=== PATIENT | female | born 1950 | race Caucasian/White ===

== ENCOUNTER 2017-11-27 10:50 | Outpatient (CLI) | payer MEDICARE, OTHER, SELFPAY ==
[2017-11-27 10:52] VITALS: BMI 23.3
[2017-11-27 11:16] LABS: Albumin Level 3.7 gm/dL (3.4-5.0); Calcium 9.4 mg/dL (8.5-10.1); Creatinine Clearance Estimated 51 mL/min (0-300); Creatinine,Serum 1.08 mg/dL (0.55-1.02); Estimated Glomerular Filt Rate 51 ml/min (>60); GFR (African American) 61 ML/MIN (>60)
[2017-11-27 12:06] VITALS: BP 96/59; PULSE 68; RESP 20; TEMP 36.8; O2SAT 96
[2017-11-27 12:30] VITALS: BP 122/70; PULSE 68; RESP 20; TEMP 36.9; O2SAT 95
== END 2017-11-27 12:30 | disposition home or self-care (01) ==
LOC: INF 10:58
PROVIDERS: Family Provider Internal Medicine Adolescent Medicine; Visit Provider Nurse Practitioner Family
DX: M85.80 Other specified disorders of bone density and structure, unspecified site (principal)
CPT/HCPCS: 82040; 82310; 82565; 96365; J3489

== ENCOUNTER → 2018-03-04 13:57 | Outpatient (POV) | payer MEDICARE, OTHER, SELFPAY ==
[2018-03-04 16:30] LABS: Basophils # 0.1 K/mm3 (0-0.2); Basophils % 1.3 % (0.1-2.0); Eosinophils # 0.1 K/mm3 (0.0-0.4); Eosinophils % 0.7 % (0.1-12.0); Hematocrit 47.5 % (37.0-47.0); Hemoglobin 15.4 g/dL (12.2-16.2); Lymphocytes # 1.3 K/mm3 (0.7-4.5); Mean Corpuscular HGB Conc 32.4 g/dL (31.8-35.4); Mean Corpuscular Hemoglobin 31.4 pg (27.0-31.2); Mean Corpuscular Volume 96.8 fl (81-99); Mean Platelet Volume 6.8 fl (7.4-10.4); Monocytes # 0.4 K/mm3 (0.1-1.0); Platelet Count 350 K/mm3 (142-424); Red Cell Distribution Width 12.6 % (11.5-17.5); White Blood Count 6.8 K/mm3 (4.8-10.8)
[2018-03-04 17:26] LABS: Alanine Aminotransferase 38 U/L (12-78); Albumin Level 4.5 gm/dL (3.4-5.0); Albumin/Globulin Ratio 1.1 (1.1-1.8); Alkaline Phosphatase 95 U/L (46-116); Amylase 52 U/L (25-125); Anion Gap 13.2 mEq/L (5-15); Aspartate Amino Transferase 24 U/L (15-37); Bilirubin,Total 0.6 mg/dL (0.2-1.0); Blood Urea Nitrogen 9 mg/dL (7-18); Calcium 9.4 mg/dL (8.5-10.1); Carbon Dioxide 32 mmol/L (21.0-32.0); Chloride 100 mmol/L (98-107); Creatinine,Serum 1.03 mg/dL (0.55-1.02); Estimated Glomerular Filt Rate 54 ml/min (>60); Free Thyroxine Index 3.2 ug/dL (5.93-13.13); GFR (African American) 65 ML/MIN (>60); Glucose 94 mg/dL (74-106); Lipase 185 u/L (73-393); Magnesium 2.6 mg/dL (1.4-2.2); Potassium 4.2 mmoL/L (3.5-5.1); Sodium 141 mmol/L (136-145); T4 (Thyroxine) 10.5 ug/dl (4.7-13.3); Thyroid Stimulating Hormone 5.27 uIU/ml (0.358-3.740); Total Protein,Serum 8.5 gm/dL (6.4-8.2); Triiodothryronine (T3) Uptake 30 % (31-39)
[2018-03-06 07:04] LABS: Vitamin B12 675 pg/mL (232-1245)
== END ==
PROVIDERS: Family Provider Internal Medicine Adolescent Medicine; Visit Provider Nurse Practitioner Acute Care
DX: R53.83 Other fatigue (principal); R10.13 Epigastric pain; R10.11 Right upper quadrant pain
CPT/HCPCS: 36415; 80053; 82150; 82607; 83690; 83735; 84436; 84443; 84479; 85025

== ENCOUNTER → 2018-03-05 10:16 | Outpatient (CLI) | payer MEDICARE, OTHER, SELFPAY ==
--- NOTE | 2018-03-05 10:26 | CT_ITS ---
CT abdomen pelvis wo/w con CLINICAL INDICATION: Right-sided abdominal pain ITS.REASON: ABD PAIN ORDERING PHYSICIAN: Yves Castillo MD PATIENT AGE: 67 years COMPARISON: None TECHNIQUE: Axial images obtained with sagittal and coronal reformats. All CT scans at the facility use one or more dose reduction, viz: automated exposure control, ma/kV adjustment per patient size (including targeted exams where dose is matched to indication, i.e. head), or iterative reconstruction technique. PROCEDURE: Oral Contrast: None IV Contrast: 75 mL's of Isovue-370 . FINDINGS: No acute finding in the lung bases. Prior cholecystectomy. Minimal biliary ductal dilatation noted. No focal liver lesion. The spleen, adrenal glands, pancreas and kidneys have an unremarkable appearance. No renal or ureteral calculi or hydronephrosis. No intestinal obstruction or free air. Bowel gas pattern is nonspecific and nonobstructive. There are few small lymph nodes in the mesentery's and right lower quadrant. No evidence of appendicitis or diverticulitis. No acute bony anomalies. No pelvic mass or abnormal fluid collection or focal inflammatory change evident within the pelvis IMPRESSION: 1. No acute abdominal or pelvic findings. 2. No evidence of appendicitis or ureteral calculus.
== END ==
PROVIDERS: Family Provider Internal Medicine Adolescent Medicine; PCP Internal Medicine Adolescent Medicine; Visit Provider Internal Medicine Adolescent Medicine
DX: R10.13 Epigastric pain (principal); R10.11 Right upper quadrant pain
CPT/HCPCS: 74170; 74178; Q9967

== ENCOUNTER → 2019-09-04 16:35 | Outpatient (CLI) | payer MEDICARE, OTHER, SELFPAY ==
--- NOTE | 2019-09-04 | CA_ITS ---
APPROVED REPORT Left Lower Extremity Venous Study for DVT. Publicist: TAURUS Indications Lower Extremity Pain: Varicose Veins Patient states she had a bakers cyst behind left knee that ruptured over a week ago. She states this morning she woke up with pain and red streaking just proximal to the left knee. Risk Factors Prior Phlebitis/DVT Patient had SVT in GSV in 2011. Vein Imaging CFV (L): compressive, spontaneous, phasic, augmentation FEM (L): compressive, spontaneous, phasic, augmentation POP (L): compressive, spontaneous, phasic, augmentation PTV (L): Compressible GSV (L): Non-Compressible, Thrombus Peroneals (L):Compressible GAS (L): Non-Compressible, Thrombus Findings SVT is seen in the proximal GSV of the LLE. DVT is seen in the gastrocnemius and soleal veins of the LLE. Conclusion SVT is seen in the proximal GSV of the LLE. DVT is seen in the gastrocnemius and soleal veins of the LLE. Critical Notification Critical Value: Yes Physician Notified Date: 09/04/19 Time: 17:10 Physician Name: [place] Electronically signed by : Fei Marshall MD 09/04/2019 19:43:47
== END ==
PROVIDERS: PCP Nurse Practitioner Family; Visit Provider Nurse Practitioner Family
DX: M79.605 Pain in left leg (principal); I83.813 Varicose veins of bilateral lower extremities with pain; I87.2 Venous insufficiency (chronic) (peripheral)
CPT/HCPCS: 93971

== ENCOUNTER → 2020-08-24 09:56 | Outpatient (CLI) | payer MEDICARE, OTHER, SELFPAY ==
--- NOTE | 2020-08-24 10:00 | XR_ITS ---
PROCEDURE: XR DEXA AXIAL SKELETON CLINICAL HISTORY: POST MENOPAUSAL COMPARISON: CR BONE3 BONE DENSITOMETRY(HIP:LT SPINE from 02/05/2017 FINDINGS: The right hip BMD is 0.596 with a T-score of -2.3. The left hip BMD is 0.732 with a T-score of -1.7. The lumbar spine BMD is 0.873 with a T-score of -1.6. Previously the lowest density was in the right femoral neck with T-score of -2.3. IMPRESSION: This patient is considered osteopenic according to the World Health Organization criteria. Bone density is between 10 and 25 percent below young normal. Fracture risk is moderate. Treatment is advised. Based on these results a follow-up exam is recommended in 2 year. Dictated by: Fei Marshall MD 08/25/2020 09:19 Fei Marshall MD in [place] 08/25/2020 09:19
== END ==
PROVIDERS: PCP Nurse Practitioner Family; Visit Provider Nurse Practitioner Family
DX: Z13.820 Encounter for screening for osteoporosis (principal); Z78.0 Asymptomatic menopausal state
CPT/HCPCS: 77080

== ENCOUNTER → 2020-10-14 07:29 | Outpatient (CLI) | payer MEDICARE, OTHER, SELFPAY ==
--- NOTE | 2020-10-14 07:35 | CA_ITS ---
APPROVED REPORT EXAM: Comprehensive 2D, Doppler, and color-flow Echocardiogram Bandsaw Operator: JABIER Valderrama, RVS Ht: 5 ft 4 in Wt: 154lbs BSA: 1.75 HR: 72 bpm BP: 116/72 mmHg Rhythm: irregular Indications: SOA 2D Dimensions Aortic Root 2.82 cm LA Volume 31.70 mL Left Atrium 3.44 cm LA Volume Index 18.10 mL/m2 (M/F) 16-34 LVOT 1.98 cm (M/F) 1.5-2.5 M-Mode Dimensions RVDd 2.51 cm (0.9-2.6) LA Diam 3.50 cm (1.9-4.0) LVDd 4.56 cm (3.5-5.7) Ao Diam 2.96 cm (2.0-3.7) LVDs 3.01 cm (3.5-5.7) IVSd 0.94 cm (0.6-1.1) PWd 0.67 cm (0.6-1.1) EF (Teich) 59.30% EPSs 0.27 cm FS 31.30% EDV (Teich) 86.80 mL ESV (Teich) 35.30 mL LV Diastology E Decel Time 257.00 (160-240 msec) E/A Ratio 0.84 MED E' 6.90 (< 7 cm/sec) MED A' 7.60 cm/s E'/MED E' Ratio 8.83 (>14) LAT E' 6.20 (<10 cm/sec) LAT A' 8.40 cm/s E/LAT E' Ratio 9.82 (>14) Aortic Valve LVOT Max 83.00 (70-110 cm/s) LVOT VTI 18.03 cm AoV Peak Evan. 128.00 (50-130 cm/s) AO Peak GR. 6.50 mmHg AO Mean GR. 2.90 (<5 mmHg) AO VTI 26.17 (18-25 cm) ADIS (VTI) 2.12 (2.5-4.5 cm2) Mitral Valve MV A Velocity 73.00 (40-130 cm/s) E/A Ratio 0.84 MV Decel. Time 257.00 (160-240 ms) Pulmonary Valve PV Peak Velocity 70.00 (50-150 cm/s) ME End VMAX 179.00 cm/s Tricuspid Valve TR P. Velocity 253.00 cm/s RAP Estimate 10.00 mmHg RVSP 35.60 mmHg Left Ventricle Left atrium is mildly enlarged, left ventricle is normal size, left ventricle wall thickness is upper limit of the normal, visually estimated ejection fraction 55% with no regional wall motion abnormality, grade 1 diastolic dysfunction seen without tissue Doppler evidence of raise left atrial pressure. Right Ventricle Right atrium and right ventricle are normal size and contractility. Aortic Valve Aortic valve is minimally thickened and fibrosed, there is no aortic stenosis or aortic insufficiency. Mitral Valve Mitral valve is grossly normal, there is trace mitral regurgitation. Tricuspid Valve Tricuspid valve grossly normal, there is trace tricuspid regurgitation, calculated right ventricular systolic pressure is 35 mmHg. Pulmonic Valve Pulmonic valve is poorly visualized. Great Vessels Aortic root is normal size. Pericardium No significant pericardial effusion noted. Conclusion 1. Normal left ventricular size, visually estimated ejection fraction 55% with no regional wall motion abnormality, grade 1 diastolic dysfunction seen without tissue Doppler evidence of raise left atrial pressure. 2. Trace mitral and tricuspid regurgitation, calculated right ventricular systolic pressure is 35 mmHg. 3. No significant pericardial effusion noted. Electronically signed by : Dipak De La Cruz, 10/14/2020 17:10:10
== END ==
PROVIDERS: PCP Nurse Practitioner Family; Visit Provider Nurse Practitioner Family
DX: R06.02 Shortness of breath (principal)
CPT/HCPCS: 93306

== ENCOUNTER → 2020-10-29 09:38 | Outpatient (CLI) | payer MEDICARE, OTHER, SELFPAY ==
[2020-10-29 11:27] LABS: Coronavirus 19 IgG Antibody Positive (Negative); Coronavirus 19 IgM Antibody Negative (Negative)
== END ==
PROVIDERS: Visit Provider Internal Medicine Gastroenterology
DX: Z01.818 Encounter for other preprocedural examination (principal); Z20.822 Contact with and (suspected) exposure to COVID-19; Z13.810 Encounter for screening for upper gastrointestinal disorder; Z12.11 Encounter for screening for malignant neoplasm of colon
CPT/HCPCS: 36415; 86328

== ENCOUNTER 2020-11-01 07:13 | Day surgery (SDC) | payer MEDICARE, OTHER, SELFPAY ==
[2020-10-27 10:38] VITALS: BMI 25.7
[2020-11-01] VITALS (7 sets, daily range): BP systolic 96–129; BP diastolic 63–85; PULSE 89–108; RESP 12–20; TEMP 36.3–36.4; O2SAT 96–99
--- NOTE | 2020-11-01 07:43 | P.PN_ITS ---
[facility] Anesthesia Checklist - Patient Identification Patient Identification: Arm Band - Structural Data Admitted From: Home Planned Operative Procedure/s: egd/colonoscopy Consent for Planned Operative Procedure(s) Verified: Yes Verified Documents: Surgical Consent, History and Physical - NPO Status Verified Time NPO: 00:00 - Additional verifications Anesthesia Reactions: No - Airway Assessment C-Spine Mobility Assessed: Yes (mp2) TMJ Mobility Assessed: Yes Dentition: Good Dentition - Neurological Assessment Level of Consciousness: Awake, Alert - Anesthesia Plan Anesthesia Risk discussed: Yes Anesthesia Plan: Verified ASA Class: III Anesthesia Type: MAC [facility] History I have reviewed the patient's past medical history: Yes Medical History: Reports:: Anxiety, Chronic Obstructive Pulmonary Disease (COPD), Deep Vein Thrombosis, Depression, Gastroesophageal Reflux Disease(GERD), Peripheral Artery Disease Denies:: Cancer, Diabetes Mellitus Type 1, Diabetes Mellitus Type 2, Internal Pacemaker, Lung Disease, MRSA, Seizures *Have you ever received a pneumonia vaccine?: Yes *Have you received a flu vaccine this season?: No Other Medical History: Reports: Hypothyroidism Anesthesia experience/problems:: nac Laterality Cases: Bilateral: Tonsillectomy Other Surgeries: Yes: Cholecystectomy, Tubal Ligation, Other. No: Pacemaker Amputation: No Fractures: No - *Social History Last grade of school completed: GED Smoking Status: Never smoker Alcohol Intake: never Substance Use Type: denies use *Occupational Status:: retired Housing: house Household Members: spouse *Travel in the last 8 weeks: None - Psychiatric History Pschychiatric History:: Reports:: Anxiety, Depression Family Hx:: Cancer
--- NOTE | 2020-11-01 08:43 | P.PCN_ITS ---
[facility] Procedure Note Procedure Note:: Upper Endoscopy Procedure Report: Esophagogastroduodenoscopy with cold biopsies and TTS balloon dilation Endoscopost: Flaco Torres II, MD Referring Physician: DAYANNA Jha Date of Procedure: November 01, 2020 Equipment: Olympus GIF 190 standard upper endoscope Sedation: MAC sedation Indications: Mrs. Kaur is a 70-year-old female who is here for diagnostic evaluation of her dyspepsia, reflux and globus sensation. She has had longstanding intermittent dyspepsia with epigastric abdominal discomfort. She reports bloating and moderate belching. She has had early satiety but infrequent nausea. She has occasional regurgitation. She reports fullness in her throat but no dysphagia. She does state that her bowel function is mostly regulated because she does take the fiber bowel regimen (MiraLAX plus Konsyl) routinely. She reports no melena or hematochezia. She reports no weight loss. She does get discomfort in the left and right upper quadrant. Procedure: Prior to the procedure, a history and physical exam was performed, and patient's medications and allergies were reviewed. The risks, benefits and alternatives of the sedation and procedure were discussed with the patient. All questions were answered and informed consent was obtained. The patient was brought to the procedure room. Patient identification and proposed procedure were verified by the physician and the nurse. The patient was placed in a left lateral decubitus position and the scope was passed under direct vision. Throughout the procedure, the patient's blood pressure, pulse, and oxygen saturations were monitored continuously. The upper GI endoscopy was accomplished without difficulty. The patient tolerated the procedure well. Findings: The scope was passed directly into the upper esophagus and advanced to the third portion of the duodenum. The post bulbar duodenum and duodenal bulb were normal with normal mucosa and conniventes. Cold biopsies were taken from the post bulbar duodenum to rule out celiac disease. The scope was withdrawn through a normal duodenal bulb and pylorus into the stomach. There was bile reflux with mild linear reactive gastropathy of the antrum and body of the stomach. The remainder of the fundus of the stomach was grossly normal. Upon retroflexion there was no hiatal hernia. 2 biopsies were taken in the antrum and along the lesser curvature for histology to rule out gastritis and/or H pylori. The scope was then withdrawn into the esophagus. There was a serrated Z-line. Biopsies were taken at the GE junction to rule out intestinal metaplasia of the GE junction. There were tertiary contractions and evidence of moderate esophageal dysmotility. The entire esophagus was dilated to 60 Danish/20 mm with a TTS hydrostatic balloon. There was some resistance at the cricopharyngeus. The remainder of the esophageal mucosa was normal. Impression: 1. Cricopharyngeal spasm status post dilation to 20 mm 2. Nonerosive GERD with moderate esophageal dysmotility 3. Bile reflux with mild linear reactive gastropathy Plan: The patient does have functional dyspepsia and functional GERD with globus sensation. We will discuss additional dietary measures and treatment options. I will follow-up the biopsies. I will proceed with colonoscopy.
--- NOTE | 2020-11-01 09:17 | P.PCN_ITS ---
[facility] Procedure Note Procedure Note:: Colonoscopy Procedure Report: Colonoscopy with cold snare polypectomy Endoscopist: Flaco Torres II, MD Referring physician: DAYANNA Jha Date of Procedure: November 01, 2020 Equipment: Olympus 190 variable stiffness pediatric colonoscope Sedation: MAC sedation Indication: Mrs. Kaur is a 70-year-old female who is here for follow-up screening/surveillance colonoscopy secondary to high risk screening/family history as well as a personal history of adenomatous colon polyps. The patient does state that her son had colon cancer at the age of 40 and her sister had colon cancer at the age of 80. The patient did have a colonoscopy in May 2017 and had a larger 17 mm ascending colon polyp (tubular adenoma) and a couple of smaller adenomas. Her last colonoscopy was in April 2019 and she had a single 9 to 10 mm ascending tubular adenoma with focal high-grade dysplasia. The patient does report regular bowel function with the use of MiraLAX plus Konsyl fiber bowel regimen. She does report some bloating. She has some left and right upper quadrant abdominal discomfort. She reports no rectal bleeding, weight loss or change in bowel habits. Procedure: Prior to the procedure, a history and physical exam was performed, and patient's medications and allergies were reviewed. The risks, benefits and alternatives of the sedation and procedure were discussed with the patient. All questions were answered and informed consent was obtained. The patient was brought to the procedure room. Patient identification and proposed procedure were verified by the physician and the nurse. The patient was placed in a left lateral decubitus position and the scope was passed under direct vision. Throughout the procedure, the patient's blood pressure, pulse, and oxygen saturations were monitored continuously. The colonoscopy was accomplished without difficulty. The patient tolerated the procedure well. Findings: On digital rectal examination there was normal rectal tone. There were no external hemorrhoids. The colonoscope was introduced through the anal canal to the rectum and advanced to the cecum. The ileocecal valve and appendiceal orifice were identified. The scope was advanced a short distance into the ileum which appeared grossly normal. There were a few aphthous erosions in the ileum. The scope was then withdrawn into the colon. The cecum was normal. There were 3 colon polyps (ascending x2 (12 and 3 mm) and descending x1 (4 mm)) which were removed via cold snare polypectomy. There were scattered diverticuli throughout the descending and sigmoid colon (LEFT colon). The rectum itself was normal. Upon retroflexion within the rectum there were grade 1 internal hemorrhoids. The preparation was excellent throughout with [place] Preparation Score of 9. The cecal time was 12 minutes. Impression: 1. Colonic polyps x3 2. Left-sided diverticulosis 3. Grade 1 internal hemorrhoids Plan: Based upon the patient's very strong family history and personal history of advanced colon polyps (larger adenomatous polyps with focal dysplasia). I would continue surveillance at a 2-year interval because of high risk. I would encourage continuation of the fiber bowel regimen (combined MiraLAX plus Konsyl) on a long-term daily maintenance basis.
== END 2020-11-01 09:50 | disposition home or self-care (01) ==
LOC: OUTP 07:14
PROVIDERS: PCP Nurse Practitioner Family; Visit Provider Internal Medicine Gastroenterology
PROC: 0DJ08ZZ Inspection of Upper Intestinal Tract, Via Natural or Artificial Opening Endoscopic (ICD-10-PCS; CPT 43235; principal; 2020-11-01 08:30)
DX: Z12.11 Encounter for screening for malignant neoplasm of colon (principal); Z80.0 Family history of malignant neoplasm of digestive organs; Z86.010 Personal history of colon polyps; K63.5 Polyp of colon; K57.30 Diverticulosis of large intestine without perforation or abscess without bleeding; K64.0 First degree hemorrhoids; K30 Functional dyspepsia; J39.2 Other diseases of pharynx; K21.9 Gastro-esophageal reflux disease without esophagitis; K22.4 Dyskinesia of esophagus; K31.9 Disease of stomach and duodenum, unspecified; J44.9 Chronic obstructive pulmonary disease, unspecified
CPT/HCPCS: 43239; 43249; 45385; 88305; C1726

== ENCOUNTER → 2020-11-17 09:42 | Outpatient (CLI) | payer MEDICARE, OTHER, SELFPAY | PROVIDERS: PCP Nurse Practitioner Family; Visit Provider Nurse Practitioner Family | DX: R06.02 Shortness of breath (principal) | CPT/HCPCS: 94060; 94726; 94729 ==

== ENCOUNTER → 2021-06-01 14:08 | Outpatient (CLI) | payer MEDICARE, OTHER, SELFPAY ==
--- NOTE | 2021-06-02 14:29 | PC.NURSE ---
informed patient that she is positive
== END ==
PROVIDERS: PCP Nurse Practitioner Family; Visit Provider Nurse Practitioner
DX: Z20.822 Contact with and (suspected) exposure to COVID-19 (principal); U07.1 COVID-19
CPT/HCPCS: C9803; U0003; U0005

== ENCOUNTER 2021-06-05 07:37 | Outpatient (CLI) | payer MEDICARE, OTHER, SELFPAY ==
[2021-06-05] VITALS (10 sets, daily range): BP systolic 100–130; BP diastolic 73–84; PULSE 83–111; RESP 17–18; TEMP 36.8; O2SAT 96–99; BMI 24.9
== END 2021-06-05 10:40 | disposition home or self-care (01) ==
PROVIDERS: PCP Nurse Practitioner Family; Referring Provider Nurse Practitioner Family; Visit Provider Internal Medicine Adolescent Medicine
DX: U07.1 COVID-19 (principal); Z23 Encounter for immunization
CPT/HCPCS: 96365

== ENCOUNTER → 2022-05-23 13:00 | Outpatient (POV) | payer MEDICARE, OTHER, SELFPAY | PROVIDERS: Visit Provider Dermatology | DX: Z00.00 Encounter for general adult medical examination without abnormal findings (principal) ==

== ENCOUNTER → 2022-06-20 09:47 | Outpatient (POV) | payer MEDICARE, OTHER, SELFPAY | PROVIDERS: Visit Provider Dermatology | DX: Z00.00 Encounter for general adult medical examination without abnormal findings (principal) ==

== ENCOUNTER → 2022-11-13 11:48 | Outpatient (CLI) | payer MEDICARE, OTHER, SELFPAY ==
--- NOTE | 2022-11-13 11:53 | XR_ITS ---
FINAL REPORT TECHNIQUE: Chest PA & Lateral CLINICAL HISTORY: CHRONIC COUGH COMPARISON: May 2019 FINDINGS: 2 views of the chest were performed. The heart size is normal. The mediastinum is within normal limits. There is no acute cardiopulmonary process. There are no pleural effusions. There is no pneumothorax. The bony thorax appears intact. IMPRESSION: No acute cardiopulmonary process. Reviewed, Interpreted and Dictated by Maverick Singh III, MD Transcribed by Mahamed Smith Authenticated and [facility]
== END ==
PROVIDERS: PCP Nurse Practitioner Family; Visit Provider Nurse Practitioner Family
DX: R05.3 Chronic cough (principal)
CPT/HCPCS: 71046

== ENCOUNTER → 2023-03-09 07:12 | Outpatient (CLI) | payer MEDICARE, OTHER, SELFPAY ==
--- NOTE | 2023-03-09 07:16 | CT_ITS ---
FINAL REPORT TECHNIQUE: Thin section axial CT images of the facial bones and sinuses were obtained without contrast. Coronal reformatted images were also obtained.This study was performed with techniques to keep radiation doses as low as reasonably achievable, (ALARA). Individualized dose reduction techniques using automated exposure control or adjustment of mA and/or kV according to the patient''''s size were employed. CLINICAL HISTORY: PERSISTENT COUGH FINDINGS: There is mild mucosal thickening of the left sphenoid sinus. No fluid levels are identified. The ostiomeatal units have an unremarkable appearance. There is mild rightward deviation of the nasal septum. No fracture or acute bony abnormality is identified. IMPRESSION: Mucosal thickening of the left sphenoid sinus. Reviewed, Interpreted and Dictated by Maverick Singh III, MD Transcribed by Ashley Luna Authenticated and [facility]
== END ==
PROVIDERS: PCP Nurse Practitioner Family; Visit Provider Allergy & Immunology
DX: R05.9 Cough, unspecified (principal)
CPT/HCPCS: 70486

== ENCOUNTER → 2023-05-09 08:25 | Outpatient (CLI) | payer MEDICARE, OTHER, SELFPAY ==
--- NOTE | 2023-05-09 08:33 | XR_ITS ---
FINAL REPORT CLINICAL HISTORY: SCREENING, POST MENOPAUSE COMPARISON: 08/24/2020 FINDINGS: Using L1-4, the bone mineral density of the spine is 0.890 g/cm2, corresponding to T-score of -1.4, consistent with low bone density. Previously 0.873 g/cm? with T score of -1.6. Using the left hip, the bone mineral density of the femoral neck is 0.738 g/cm2, corresponding to a T-score of -1.7, consistent with low bone density. Previously 0.732 g/cm? with T score of -1.7. Using the right hip, the bone mineral density of the femoral neck is 0.619 g/cm2, corresponding to a T-score of -2.1, consistent with low bone density. Previously 0.596 g/cm? with T score of -2.3. FRAX score not reported because patient being treated for osteoporosis. NOTE: T-score: Standard deviation compared with peak bone mass of young adult mean. *Following the recommendations of the International Society of Bone densitometry, classification of hip BMD is based on the lower of two T-scores; total hip or femoral neck. IMPRESSION: Diminished bone mineral density consistent with low bone density. Reviewed, Interpreted and Dictated by Maverick Singh III, MD Transcribed by Gaby Carey Authenticated and [facility]
== END ==
PROVIDERS: PCP Nurse Practitioner Family; Visit Provider Nurse Practitioner Family
DX: Z78.0 Asymptomatic menopausal state (principal); M85.80 Other specified disorders of bone density and structure, unspecified site
CPT/HCPCS: 77080

== ENCOUNTER 2023-08-21 11:15 | Outpatient (POV) | payer MEDICARE, OTHER, SELFPAY | END 2023-08-21 23:59 | disposition home or self-care (01) | LOC: SC 11:16 | PROVIDERS: PCP Nurse Practitioner Family; Visit Provider Dermatology | DX: Z00.00 Encounter for general adult medical examination without abnormal findings (principal) ==